=== PATIENT | female | born 1990 | race Asian ===

== ENCOUNTER 2016-10-04 23:18 | Emergency (ER) | payer OTHER ==
[~2016-10-04] VITALS: Ht 162.6 cm; Wt 65.9 kg
--- NOTE | 2016-10-04 23:27 | ED.REPORT ---
[id number] Illness Date of Service Oct 04, 2016 ED Provider: Dr. Quan Sy MD A 26 year old female presents to the ED complaining of a flu like symptoms that began 2 days ago. Associated symptoms include fever that began yesterday but has since resolved. Recent sick contacts include her daughter who was diagnosed with Influenza B in the ED today. She denies any other medical complaints at this time. Nursing Notes Stated Complaint: FLU SYMPTOMS Nursing Notes Reviewed: Yes Allergies: Coded Allergies: No Known Allergies (Unverified , 10/04/16) Scheduled Oseltamivir Phosphate (Tamiflu) 75 Mg Capsule 75 MG PO BID General Time Seen by Provider: 23:25 Chief Complaint Other (influenza exposure) Hx Obtained From: Patient Arrived By: Walk-in Onset Occurred: 2 days ago Symptom Duration: Since onset Progression Since Onset: Unchanged Associated with: Reports: Fever Pertinent Negative: Pt denies other symptoms Recent Healthcare: No recent doctor visit, No recent hospitalization Past Medical History Past Medical History - approx 20 wks Past Surgical History None reported Smoking History Unknown if Ever Smoker Social History Other Social History: Good social support, Local resident Ambulatory Status Independent Review of Systems Constitutional: Reports: Chills, Fever Respiratory: Denies: Shortness of breath Cardiovascular: Denies: Chest pain GI: Denies: Abdominal pain, Nausea, Vomiting Neurologic: Denies: Change LOC Complete sys rev & neg: except as marked. Physical Exam Initial Vital Signs Vital Signs (First) Date Time Temp Pulse Resp B/P Pulse Ox O2 Delivery O2 Flow Rate FiO2 10/04/16 23:38 36.7 103 22 106/73 96 Room Air Initial VS: Reviewed Head / Eyes: Atraumatic, Normocephalic, PERRL Extremities: Vascular intact, Neuro intact, No swelling, No tenderness Psychiatric: Mood/affect normal, Behavior normal, Normal thought content General/Constitutional: Awake, Alert Neck: Atraumatic, Supple Respiratory / Chest: Atraumatic, Breath sounds NL, Breath sounds = bilat Cardiovascular: Heart rate NL, Regular rhythm, Heart sounds NL Heart Rate / Rhythm: Negative: Tachycardia Skin: Atraumatic, Color NL, Warm, Dry Neurologic: Oriented X3, Speech NL, No motor deficits, No sensory deficits Re-Evaluation & MDM Re-Evaluation/Progress : Time of Eval: 00:02 Patient Status: Condition improved Re-Evaluation/Progress Note: Patient is rechecked. She is informed of the plan to discharge with Tamiflu. All questions are addressed. She understands and agrees with the treatment plan. Counseled Regarding: Diagnosis, Need for follow-up, When/why to return to ED Patient Discharge & Departure Impression: Primary Impression: Influenza B Disposition: Home Discharge Condition All VS Reviewed: Yes Condition: Stable Patient Instructions: Influenza (DC) Additional Instructions: You need treatment with Tamiflu because you are and your child is flu be positive. No further follow-up would be necessary as long as you are not feeling much worse. You should not go to work until your symptoms have resolved +24 hours. Follow-up right away for any difficulty breathing. Take Tamiflu twice daily for 5 days. Referrals: NOPCP (PCP) [facility] Scribe Attestation Portions of this note were transcribed by Juarez Carlisle. I, Dr. Sy personally performed the history, physical exam and medical decision-making; I reviewed and confirmed the accuracy of the information in the transcribed note. Signed by: Julian Leonard, 10/05/16 0000. Quan Sy MD Oct 04, 2016 23:27 JUAREZ CARLISLE Oct 04, 2016 23:29 Quan Sy MD Oct 04, 2016 23:27 JUAREZ CARLISLE Oct 04, 2016 23:29
[2016-10-04] MEDS ORDERED: TAM75UDCAP PO (23:28)
[2016-10-04 23:38] VITALS: BP 106/73; PULSE 103; RESP 22; O2SAT 96
[2016-10-04 23:53] VITALS: BP 106/73; PULSE 103; RESP 22; O2SAT 96
== END 2016-10-04 23:54 | disposition home or self-care (01) ==
LOC: SED 23:18
DX: O99.512 Diseases of the respiratory system complicating pregnancy, second trimester (principal); J10.1 Influenza due to other identified influenza virus with other respiratory manifestations; Z3A.20 20 weeks gestation of pregnancy

== ENCOUNTER 2016-12-06 14:48 | Inpatient (IN) | payer OTHER ==
[~2016-12-06 14:48] MED LIST: TAM75UDCAP PO
[2016-12-06] MEDS ORDERED: Betameth Ace-Betam SodPhos 6 mg/mL 5 mL Inj IM ONE (15:20)
[2016-12-06] MEDS ORDERED: Magnesium Sulf 4 Gm/100 mL H2O 4 GM in IV Premix 1 EACH IV ONE (15:20)
[2016-12-06] MEDS ORDERED: Magnesium Sulf 20 Gm/500mL H2O 20 GM in IV Premix 1 EACH IV SCH (15:20)
[2016-12-06] MEDS ORDERED: Calcium GLUCOnate 10% (Gm) 1 Gm/10 mL Inj IV PRN (15:20)
[2016-12-06] MEDS ORDERED: Magnesium Sulfate 20 Gm/500 mL Water Premix IV ONE (15:21)
--- NOTE | 2016-12-06 16:09 | HP ---
[address] [address] HISTORY AND PHYSICAL PATIENT: BALTA ROSAS : 1990 MR#: [id number] ADMIT: 12/06/2016 JOB ID: [id number] CHIEF DIAGNOSIS: labor at 33 weeks and 5 days. HISTORY OF PRESENT ILLNESS: The patient is a 26-year-old, 2, para 0-1-0-1, at 33 weeks and 5 days gestational age by ultrasound with CHANG of January 19, 2017, per patient. She follows up with Dr. Pierce in [facility]. No records available; only patient's history. She presented to [facility]riage on October 22, 2016, with premature rupture of membranes and she received a 1st dose of dexamethasone at that time, and she was transported to [facility], where she was hospitalized for one week. She was discharged home with instructions for bedrest and pelvic rest. Presented today with uterine contractions. Reports sexual intercourse last night. Cervical exam in triage was 4 cm dilated cervix, 70% to 80% effaced, and high presenting part. The patient denied any leakage of fluid, vaginal bleeding. Reports movements. PAST OBSTETRICAL HISTORY: 2009, labor and delivery at 35 weeks. Spontaneous vaginal delivery ,3-4 hours of labor. Female infant. was complicated with vaginal bleeding at 29 weeks with hospitalization in [place] and the current . PAST GYNECOLOGIC HISTORY: Prior history of normal Pap smear in 2014, followed by normal Pap. No history of STDs per patient. PAST MEDICAL HISTORY: Mild headaches that resolved with Tylenol only. PAST SURGICAL HISTORY: Laparoscopic cholecystectomy and ovarian cyst removal. ALLERGIES: No known drug allergies. MEDICATIONS: Weekly IM progesterone injections during this . Prior history of labor and delivery. vitamins, and Tylenol p.r.n. for her headaches. SOCIAL HISTORY: Denied any alcohol consumption. Denied any drugs of abuse. Denied any cigarette smoking. LABS: No records available. Discussed with Dr. Tracy over the phone and he reports that he has her records in [facility]. PHYSICAL EXAMINATION: Patient is alert, oriented x3. Vital signs are 115/63 for blood pressure. Respirations are 18, pulse is 88, temperature 36.6 degrees centigrade. Heart is regular rate and rhythm. Positive S1, S2. Lungs clear to auscultation bilaterally. Abdomen: Gravid uterus, nontender. Positive bowel sounds. Lower extremities: No calf tenderness appreciated bilaterally. Cervical exam by myself 30 minutes after triage nurse exam was still 4 cm dilated cervix, 70% effaced, high presenting part. Bedside ultrasound confirmed vertex presentation. [place] was showing contractions every 1-3 minutes. heart tracing is showing a baseline of 135 beats per minute, positive accelerations, no decelerations, moderate variability, category 1 heart tracing. ASSESSMENT AND PLAN: The patient is a 26-year-old 2, para 0-1-0-1, at 33 weeks 5 days gestational age by ultrasound, reecived care at [facility] with Dr. Pierce. Will transport to [facility] for gestational age less than 34 weeks. [address] with Dr. Tracy, who is the accepting physician at [facility]. He accepted the transport. 1- Magnesium sulfate 4 g bolus to be followed by 2 g/hour for tocolysis, 2- betamethasone injection #1started today. 3- Consent signed for transport. 4- GBS cultures to be collected at [facility] upon arrival. All questions answered. All the above was discussed in details with the patient , who agreed to the transport. DAPHNE
== END 2016-12-06 16:03 | disposition short-term general hospital (02) | DRG 778 ==
LOC: FBCO 14:48 → FBC 15:00
PROVIDERS: ADMIT Obstetrics & Gynecology; ATTEND Obstetrics & Gynecology
DX: O60.03 Preterm labor without delivery, third trimester (principal); Z3A.33 33 weeks gestation of pregnancy

== ENCOUNTER 2017-05-15 21:13 | Emergency (ER) | payer OTHER ==
[~2017-05-15] VITALS: Ht 160 cm; Wt 60.0 kg
[2017-05-15 21:35] VITALS: BP 109/72; PULSE 68; RESP 16; O2SAT 100
--- NOTE | 2017-05-15 22:46 | ED.REPORT ---
HPI-General Illness Date of Service May 15, 2017 ED Provider: Alfred Chnag DO A 26 year old female with a history of early carpal tunnel presents to the ED complaining of left hand pain. The pt has been experiencing this pain intermittently since an injury to her left hand two years ago, but the pain has worsened in the last several days. The pain radiates into her left wrist and arm , and is accompanied by left hand swelling, and numbness and tingling in her fourth and fifth fingers. The pt has been seeing a physical therapist for bilateral hand pain with some relief of her symptoms. She has also been prescribed ibuprofen from her PCP but states that this medication is no longer helping her pain. Nursing Notes Stated Complaint: WRIST,ARM AND BACK PAIN Chief Complaint: General Complaint Nursing Notes Reviewed: Yes Allergies: Coded Allergies: No Known Allergies (Unverified , 05/15/17) Scheduled Oseltamivir Phosphate (Tamiflu) 75 Mg Capsule 75 MG PO BID Scheduled PRN Gabapentin (Gabapentin) 300 Mg Capsule 300 MG PO TID PRN PRN For Pain Tramadol (Tramadol) 50 Mg Tablet 50 MG PO Q4H PRN PRN For Pain General Time Seen by MD: 22:45 Chief Complaint Other (Left hand pain) Hx Obtained From: Patient Arrived By: Walk-in Sudden in Onset?: No Onset Occurred: More than a week ago... Symptom Duration: Since onset Recent Healthcare: Recent doctor visit, Recent hospitalization Similar Sx Previous: Yes Past Medical History Past Medical History early carpal tunnel Past Surgical History ovarian cyst removal Reports: Cholecystectomy Smoking History Unknown if Ever Smoker Social History Other Social History: Good social support, Local resident Ambulatory Status Independent Review of Systems numbness and tingling of left fourth and fifth fingers Full Review of Systems Respiratory: Denies: Non-productive cough, Shortness of breath Cardiovascular: Denies: Chest pain GI: Denies: Abdominal pain, Vomiting Musculoskeletal: Reports: Extremity pain, Denies: Neck pain Skin: Denies Rash Complete sys rev & neg: except as marked. Physical Exam Vital Signs Vital Signs Date Time Temp Pulse Resp B/P Pulse Ox O2 Delivery O2 Flow Rate FiO2 05/15/17 23:35 66 18 105/77 98 Room Air 05/15/17 21:35 36.9 68 16 109/72 100 Room Air Initial VS: Reviewed General/Constitutional: Awake, Alert Head / Eyes: Atraumatic, Normocephalic, PERRL, EOMI ENT: Atraumatic, Airway patent, Mucous membranes moist Neck: Atraumatic, Supple, Full range of motion Respiratory / Chest: Atraumatic, Breath sounds NL, Breath sounds = bilat, No respiratory distress Cardiovascular: Heart rate NL, Regular rhythm, Heart sounds NL Abdomen: Atraumatic, Soft, Non-tender Back: Atraumatic, Full range of motion Upper Extremities Upper Extremity / MS: Full range of motion, Vascular intact positive Tinel's sign of the left wrist and ulnar nerve negative Phalen's test No deficits of strength in the hand Lower Extremity / Pelvis / MS: Atraumatic, Full range of motion Skin: Color NL, No rash, Warm, Dry Neurologic: Oriented X3, Speech NL, No motor deficits Psychiatric: Affect NL, Mood NL Re-Eval/Medical Decision Med Decision/Clinical Course 26-year-old female presenting with cubital tunnel syndrome symptoms as well as carpal tunnel symptoms to a lesser extent. She has been doing physical therapy for 2 months without relief. I recommended that she try some gabapentin and have an EMG done as an outpatient, followed by him evaluation by orthopedics. Patient was also prescribed a small amount of tramadol to help with breakthrough pain, and advised to continue ibuprofen for baseline pain. Time of Eval: 22:45 Patient Status: Condition improved Re-Evaluation/Progress Note: Pt informed of the diagnosis and plan for discharge during the initial interview. The pt understands and agrees with the plan. All questions are addressed at this time. Counseled Regarding: Diagnosis, Need for follow-up, When/why to return to ED Discharge & Departure Primary Impression: Ulnar neuropathy Laterality: left Qualified Code: G56.22 - Lesion of ulnar nerve, left upper limb Additional Impression: Carpal tunnel syndrome Laterality: left Qualified Code: G56.02 - Carpal tunnel syndrome, left upper limb Disposition: Home Discharge Condition All VS Reviewed: Yes Condition: Stable Patient Instructions: Carpal Tunnel Syndrome (ED) Additional Instructions: Thank you for entrusting us with your care. Your evaluation was reassuring and there does not appear to be a dangerous cause for your symptoms. Take Gabapentin and Tramadol as prescribed. Call your primary care physician to arrange a follow up appointment in the next several days. If the symptoms do not improve, discuss an EMG during this follow up appointment. Return to the emergency department if you develop any new or worsening symptoms. Referrals: OTHER,PHYSICIAN (PCP) Scribe Attestation Portions of this note were transcribed by Michaela Davis. I, Dr. Chang personally performed the history, physical exam and medical decision-making; I reviewed and confirmed the accuracy of the information in the transcribed note. Alfred Chang DO May 15, 2017 22:45 MICHAELA DAVIS May 15, 2017 22:56
[2017-05-15] MEDS ORDERED: TRAM50TA2 PO (23:18)
[2017-05-15] MEDS ORDERED: GABA-502 PO (23:18)
[2017-05-15 23:35] VITALS: BP 105/77; PULSE 66; RESP 18; O2SAT 98
== END 2017-05-16 00:22 | disposition home or self-care (01) ==
LOC: SED 21:13
DX: G56.22 Lesion of ulnar nerve, left upper limb (principal); G56.02 Carpal tunnel syndrome, left upper limb
CPT/HCPCS: 96372; 99283; J1885